=== PATIENT | male | born 1960 | race African-American/Black ===

== ENCOUNTER 2019-04-21 08:15 | Observation (INO) | payer BC ==
[~2019-04-21] VITALS: Ht 172.7 cm; Wt 77.3 kg
[2019-04-21] MEDS ORDERED: NITROGLYCERIN 2% 1 GM OINT PKT TD STA (08:53)
[2019-04-21] MEDS ORDERED: NITROGLYCERIN (SL) 0.4 MG TAB SL PRN ×2 (09:00→11:30)
[2019-04-21] MEDS ORDERED: ACETAMINOPHEN 325 MG TAB PO PRN ×2 (10:00→11:30)
[2019-04-21] MEDS ORDERED: ONDANSETRON 4 MG INJ IV PRN (10:00)
[2019-04-21] MEDS ORDERED: METF500T24 PO (10:26)
[2019-04-21] MEDS ORDERED: BENA1TAB14 PO (10:27)
[2019-04-21] MEDS ORDERED: ATOR20TA38 PO (10:28)
--- NOTE | 2019-04-21 11:28 | HP ---
Date/Time of Note Date/Time of Note DATE: 04/21/19 TIME: 11:28 Assessment/Plan VTE Prophylaxis Pharmacological prophylaxis: LMWH Assessment/Plan Hospital Course 58-year-old -Luxembour[place] male with comorbidities including hypertension, dyslipidemia, and diabetes mellitus type 2 who is presenting with chest pain and will be admitted to inpatient setting for further treatment and evaluation. 1. Chest pain. -Etiology unclear. -Differentials include musculoskeletal chest pain versus ACS versus others. Less likely PE since the patient is saturating well. -Obtain serial troponins. -Obtain 2D echocardiogram to evaluate left ventricular ejection fraction. -Start aspirin. -Obtain cardiology consult. 2. Essential hypertension. -The patient will be resumed on antihypertensives. 3. Diabetes mellitus type 2. -Will hold metformin in anticipation for any IV dye use. -Will start the patient on sliding scale insulin along with pre-meal insulin and basal insulin. -Obtain hemoglobin A1c to evaluate the blood glucose control over the past few months. 4. Dyslipidemia. -Will start the patient on statins. -Obtain a fasting lipid panel. Plan: The patient will be admitted to inpatient telemetry floor. The patient will be started on a carbohydrate control, low-cholesterol diet. The patient will be started on DVT prophylaxis . The patient will remain a full code. Activities will be as tolerated. The rest of the patient's management will be based on the clinical course, i nputs from consultants, and the results of diagnostic studies. Based on the patient's clinical presentation, he most probably requires at least 1 midnight's stay for further management and evaluation of his clinical presentation. The patient was seen in collaboration with Dr. Chacko. Result Diagram: 04/21/19 0904/21/19 0901 Results 24hrs Laboratory Tests Test 04/21/19 09:01 04/21/19 09:02 Sodium Level 138 Potassium Level 4.2 Chloride Level 101 Carbon Dioxide Level 30 Anion Gap 7 Blood Urea Nitrogen 20 Creatinine 1.01 Est Glomerular Filtrat Rate mL/min > 60 Glucose Level 183 Calcium Level 10.1 Troponin I < 0.012 White Blood Count 4.5 L Red Blood Count 5.02 Hemoglobin 14.6 Hematocrit 42.7 Mean Corpuscular Volume 85.1 Mean Corpuscular Hemoglobin 29.1 Mean Corpuscular Hemoglobin Concent 34.2 Red Cell Distribution Width 12.8 Platelet Count 239 Mean Platelet Volume 10.2 Immature Granulocytes % 0.400 Neutrophils % 47.3 Lymphocytes % 40.0 Monocytes % 8.3 Eosinophils % 3.6 Basophils % 0.4 Nucleated Red Blood Cells % 0.0 Immature Granulocytes # 0.020 Neutrophils # 2.1 Lymphocytes # 1.8 Monocytes # 0.4 Eosinophils # 0.2 Basophils # 0.0 Nucleated Red Blood Cells # 0.0 HPI/ROS Admit Date/Time Admit Date/Time Hx of Present Illness Reason for admission: Chest pain. Consultants 1. Bronson Arana MD, Cardiology. This is a 58-year-old male with comorbidities including hypertension, dyslipidemia, and diabetes mellitus type 2. The patient came to the emergency room with chief complaint of chest pain that started around 6:30 AM on 04/21/2019. The patient verbalized the chest pain as substernal. He also had difficulty with deep inspiration at the same time. The patient denied any radiation of the pain. The patient complained of some nausea. He denies any vomiting or diaphoresis. Denied any fevers or chills. The patient verbalized that he has been under psychological stress from his job recently. He was brought to the emergency room. His chest pain resolved after giving nitroglyce rin. 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 In the emergency room, the patient's 12-lead EKG was showing normal sinus rhythm. The patient's initial set of troponin was negative. The patient's chest x-ray was negative for any acute cardiopulmonary process. ROS Constitutional: nausea Eyes: no complaints ENT: no complaints Respiratory: pleuritic pain Cardiovascular: chest pain Gastrointestinal: nausea Genitourinary: no complaints Musculoskeletal: no complaints Skin: no complaints Neurologic: no complaints Endocrine: no complaints Lymphatic: no complaints Psychological: no complaints Immunologic: no complaints PMH/Family/Social Past Medical History 1. Hypertension. 2. Diabetes mellitus type 2 3. Dyslipidemia. Medications Current Medications Nitroglycerin (Nitroglycerin (Sl Tab) 0.4 Mg) 1 tab Q5M UP TO 3 DOSES PRN SL .CHEST PAIN; Start 04/21/19 at 09:00 Ondansetron HCl (Zofran Inj) 4 mg ER BRIDGE PRN IV NAUSEA/VOMITING; Start 04/21/19 at 10:00; Stop 04/22/19 at 09:59 Acetaminophen (Tylenol Tab) 650 mg ER BRIDGE PRN PO .MILD PAIN 1-3 OR TEMP; Start 04/21/19 at 10:00; Stop 04/22/19 at 09:59 Coded Allergies: No Known Allergy (Unverified , 04/21/19) Past Surgical History Past Surgical Hx: no surgical history Family History Significant Family History: heart disease Social History The patient lives at home. Alcohol Use: occasionally Smoking Status: Never smoker Drug Use: none Exam/Review of Systems Vital Signs Vitals Vital Signs Date Temp Pulse Resp B/P (MAP) Pulse Ox O2 O2 Flow FiO2 Time Delivery Rate 04/21/19 98.1 85 18 125/88 99 08:19 (100) Exam Exam General: Adequately build 58 year-old male lying in bed in no apparent distress. HEENT: Normocephalic, atraumatic. Eyes: Anicteric sclerae, conjunctivae clear. ENT: Nasal septum midline, oral mucosa moist. Neck supple, no JVD noticed. Respiratory: Bilaterally clear breath sounds. No use of accessory muscles of respiration. No adventitious breath sounds. Cardiovascular: S1, S2 heard. Regular rate and rhythm. Abdomen: Soft, nontender, and nondistended. Bowel sounds positive in all 4 quadrants. Genitourinary: Deferred. Extremities: No cyanosis, no clubbing, no edema. Peripheral pulses palpable. Neurologic: Cranial nerves II through XII grossly intact. The patient is awake, alert, and oriented. Skin: Normal skin turgor. No skin rashes. Additional Comments CXR IMPRESSION: No evidence of active cardiopulmonary disease. MARCELINO VÁSQUEZ NP April 21, 2019 11:28
[2019-04-21] MEDS ORDERED: NACL 0.9% 3 ML SYG IV SCH (11:30)
[2019-04-21] MEDS ORDERED: HYDROCODONE/APAP (5/325) TAB PO PRN (11:30)
--- NOTE | 2019-04-21 11:38 | ERD ---
ER Documentation Chief Complaint Chief Complaint sob, chest disconfort today HPI Patient is a 58-year-old male with hypertension and diabetes who presents with shortness of breath and chest pain. He said that he woke up this morning with shortness of breath and went to work. However the shortness of breath worsened and then he developed chest tightness across his chest. It still present but it is better than when it first started. He took a full dose 325 mg aspirin today because he was concerned about a possible heart attack. He said that his last stress test was at the end of last year but he has never had a cardiac cat heterization. Upon review of old medical records this is the patient's first visit to the emergency department. ROS All systems reviewed and are negative except as per history of present illness. Medications Home Meds Reported Medications Atorvastatin Calcium* (Atorvastatin Calcium*) 20 Mg Tablet, 20 MG PO QHS, #30 TAB 04/21/19 Benazepril-Hydrochlorothiazide (Benazepril-Hydrochlorothiazide) 20-25 Mg Tablet, 1 TAB PO DAILY, #30 TAB 04/21/19 Metformin Hcl* (Metformin Hcl*) 500 Mg Tablet, 500 MG PO WITH BREAKFAST DINNE, #60 TAB 04/21/19 Allergies Allergies: Coded Allergies: No Known Allergy (Unverified , 04/21/19) FmHx Family History: coronary disease Physical Exam Vitals Vital Signs Date Temp Pulse Resp B/P (MAP) Pulse Ox O2 O2 Flow FiO2 Time Delivery Rate 04/21/19 98.1 85 18 125/88 99 08:19 (100) Physical Exam Const: No acute distress Head: Atraumatic Eyes: Normal Conjunctiva ENT: Normal External Ears, Nose and Mouth. Neck: Full range of motion. No meningismus. Resp: Clear to auscultation bilaterally Cardio: Regular rate and rhythm, no murmurs Abd: Soft, non tender, non distended. Normal bowel sounds Skin: No petechiae or rashes Back: No midline or flank tenderness Ext: No cyanosis, or edema Neur: Awake and alert Psych: Normal Mood and Affect Result Diagram: 04/21/19 0902 04/21/19 0901 Results 24 hrs Laboratory Tests Test 04/21/19 09:01 04/21/19 09:02 Sodium Level 138 mmol/L Potassium Level 4.2 mmol/L Chloride Level 101 mmol/L Carbon Dioxide Level 30 mmol/L Anion Gap 7 Blood Urea Nitrogen 20 mg/dl Creatinine 1.01 mg/dl Est Glomerular Filtrat Rate mL/min > 60 mL/min Glucose Level 183 mg/dl Calcium Level 10.1 mg/dl Troponin I < 0.012 ng/ml White Blood Count 4.5 10^3/ul Red Blood Count 5.02 10^6/ul Hemoglobin 14.6 g/dl Hematocrit 42.7 % Mean Corpuscular Volume 85.1 fl Mean Corpuscular Hemoglobin 29.1 pg Mean Corpuscular Hemoglobin Concent 34.2 g/dl Red Cell Distribution Width 12.8 % Platelet Count 239 10^3/UL Mean Platelet Volume 10.2 fl Immature Granulocytes % 0.400 % Neutrophils % 47.3 % Lymphocytes % 40.0 % Monocytes % 8.3 % Eosinophils % 3.6 % Basophils % 0.4 % Nucleated Red Blood Cells % 0.0 /100WBC Immature Granulocytes # 0.020 10^3/ul Neutrophils # 2.1 10^3/ul Lymphocytes # 1.8 10^3/ul Monocytes # 0.4 10^3/ul Eosinophils # 0.2 10^3/ul Basophils # 0.0 10^3/ul Nucleated Red Blood Cells # 0.0 10^3/ul Current Medications Medications Dose Sig/Luisito Start Time Status Last (Trade) Ordered Route PRN Stop Time Admin Dose Reason Admin 1 inch ONCE STAT 04/21/19 DC 04/21/19 Nitroglycerin TD 08:53 09:29 04/21/19 08:54 (Nitroglyceri n 2% Oint) 1 tab Q5M UP TO 3 04/21/19 Nitroglycerin DOSES PRN 09:00 SL .CHEST (Nitroglyceri PAIN n (Sl Tab) 0.4 Mg) Ondansetron 4 mg ER BRIDGE 04/21/19 HCl (Zofran PRN IV 10:00 Inj) NAUSEA/VOMITI 04/22/19 09:59 NG 650 mg ER BRIDGE 04/21/19 Acetaminophen PRN PO 10:00 (Tylenol .MILD PAIN 04/22/19 09:59 Tab) 1-3 OR TEMP IV Flush 3 ml PER 04/21/19 (NS 3 ml) PROTOCOL IV 11:30 Aspirin 81 mg DAILY PO 04/22/19 (Aspirin) 09:00 1 tab Q5M PRN 04/21/19 Nitroglycerin SL .CHEST 11:30 PAIN (Nitroglyceri n (Sl Tab) 0.4 Mg) 650 mg Q6H PRN 04/21/19 Acetaminophen PO .PAIN 1-3 11:30 (Tylenol OR TEMP Tab) 1 tab Q6H PRN 04/21/19 Acetaminophen PO .PAIN 4-6 11:30 / Hydrocodone Bitart ([place] (5/325)) Enoxaparin 40 mg DAILY SC 04/22/19 Sodium 09:00 (Lovenox) Procedures/MDM EKG 1 read by me: Rate/Rhythm: Regular rate and rhythm at a normal rate Intervals: Normal Impression: No evidence of ischemia or arrhythmia EKG 2 read by me: Rate/Rhythm: Regular rate and rhythm at a normal rate Intervals: Normal Impression: No evidence of ischemia or arrhythmia Chest x-ray read by radiology. Patient is a 58-year-old male with hypertension and diabetes and family history of cardiac disease who presents with chest pain and shortness of breath. I am concerned for possible acute coronary syndrome. I doubt pneumonia, pneumothorax, pulmonary embolism, or aortic dissection. The patient already took full dose aspirin today. He will be given nitroglycerin in the emergency department. He will be admitted to a telemetry observation bed under the care of the panel team. Departure Diagnosis: Primary Impression: Chest pain Chest pain type: unspecified Qualified Codes: R07.9 - Chest pain, unspecified Additional Impression: Shortness of breath Condition: YASH Herring MD April 21, 2019 11:38
[2019-04-21] MEDS ORDERED: DEXTROSE 50% 50 ML SYRINGE IV PRN ×2 (14:30)
[2019-04-21] MEDS ORDERED: GLUCAGON 1 MG INJ IM PRN (14:30)
[2019-04-21] MEDS ORDERED: GLUCOSE GEL 15 GRAM TUBE PO PRN ×2 (14:30)
[2019-04-21] MEDS ORDERED: GLUCOSE GEL 15 GRAM TUBE BUCCAL PRN (14:30)
[2019-04-21 15:00] VITALS: BP 116/76; PULSE 86; RESP 16
[2019-04-21 15:31] VITALS: Ht 172.7 cm; Wt 77.3 kg
[2019-04-21 16:01] VITALS: PULSE 90
[2019-04-21] MEDS: INSULIN ASPART [NOVOLOG] 3 ML PEN SC SCH ×3 (17:40→21:00)
[2019-04-21 20:00] VITALS: BP 114/69; PULSE 84; PULSE 90; RESP 19
[2019-04-21] MEDS ORDERED: INSULIN GLARGINE [LANTus] (100 UNITS/ML) SYG SC SCH (20:00)
[2019-04-21] MEDS: METOPROLOL 25 MG TAB PO SCH (20:24)
[2019-04-21] MEDS ORDERED: ATORVASTATIN 20 MG TAB PO SCH (21:00)
[2019-04-22] VITALS: BP_SYST 100; BP_SYST 145; BP_DIAS 63; BP_DIAS 74; PULSE 71; PULSE 76; RESP 18; RESP 19
[2019-04-22 04:00] VITALS: BP 104/67; PULSE 64; PULSE 74; RESP 18
[2019-04-22] MEDS: INSULIN ASPART [NOVOLOG] 3 ML PEN SC SCH ×5 (07:37→12:10)
[2019-04-22 07:42] VITALS: BP 117/74; PULSE 79; RESP 20
[2019-04-22 08:00] VITALS: PULSE 84; PULSE 95
--- NOTE | 2019-04-22 08:16 | CONS ---
Assessment/Plan Assessment/Plan Hospital Course (Demo Recall) 1. Chest pain/shortness of breath rule acute coronary syndrome 2. Hypertension 3. Diabetes 4. Dyslipidemia 5. History of coronary artery disease in the family cont with ASA betablocker for now R/O NV with serial cardiac enzymes echo cont other home cardiac / BP meds statin LEXISCAN in am if normal trop Thank you BRENDA TEJADA Consultation Date/Type/Reason Admit Date/Time Date of Consultation: April 21, 2019 Type of Consult Cardiology Reason for Consultation chest pain Requesting Provider: MARCELINO VÁSQUEZ NP Date/Time of Note DATE: 04/21/19 TIME: 15:08 Hx of Present Illness Interventional cardiology consultation note Chief complaint: sob. chest discomfort Reason for consult: chest pain History of present illness: Thank you for this referral. This is a pleasant 58-year-old -[place] gentleman with history of diabetes hypertension dyslipidemia family history of coronary artery disease who woke up this morning around 6:00 with complaint of shortness of breath mostly and some chest discomfort and pressure anteriorly. The symptom lasted about an hour and completely resolved now. Patient is states that he is normally able to exercise and weight lift with no chest pain or pressure frequently to remain chest pain-free Allergies: No known drug allergies Medications were reviewed as per medical reconciliation sheet Family history: Father with coronary artery disease Social history: Does not smoke Past medical history: Diabetes hypertension dyslipidemia Review of system: Patient denies all others except for above-mentioned Past Medical History Home Meds Reported Medications Atorvastatin Calcium* (Atorvastatin Calcium*) 20 Mg Tablet, 20 MG PO QHS, #30 TAB 04/21/19 Benazepril-Hydrochlorothiazide (Benazepril-Hydrochlorothiazide) 20-25 Mg Tablet, 1 TAB PO DAILY, #30 TAB 04/21/19 Metformin Hcl* (Metformin Hcl*) 500 Mg Tablet, 500 MG PO WITH BREAKFAST DINNE, #60 TAB 04/21/19 Medications Current Medications Ondansetron HCl (Zofran Inj) 4 mg ER BRIDGE PRN IV NAUSEA/VOMITING; Start 04/21/19 at 10:00; Stop 04/22/19 at 09:59 IV Flush (NS 3 ml) 3 ml PER PROTOCOL IV ; Start 04/21/19 at 11:30 Aspirin (Aspirin) 81 mg DAILY PO ; Start 04/22/19 at 09:00 Nitroglycerin (Nitroglycerin (Sl Tab) 0.4 Mg) 1 tab Q5M PRN SL .CHEST PAIN; Start 04/21/19 at 11:30 Acetaminophen (Tylenol Tab) 650 mg Q6H PRN PO .PAIN 1-3 OR TEMP; Start 04/21/19 at 11:30 Acetaminophen/ Hydrocodone Bitart ([place] (5/325)) 1 tab Q6H PRN PO .PAIN 4-6; Start 04/21/19 at 11:30 Enoxaparin Sodium (Lovenox) 40 mg DAILY SC ; Start 04/22/19 at 09:00 Atorvastatin Calcium (Lipitor) 20 mg QHS PO ; Start 04/21/19 at 21:00 Benazepril HCl (Lotensin) 20 mg DAILY PO ; Start 04/22/19 at 09:00 Insulin Glargine (Lantus) 12 units DAILY@2000 SC ; Start 04/21/19 at 20:00 Insulin Aspart (Novolog Insulin Pen) 4 unit WITH MEALS SC ; Start 04/21/19 at 18:00 Insulin Aspart (Novolog Insulin Pen) NOVOLOG *MILD* ALGORITHM WITH MEALS BEDTIME SC ; Start 04/21/19 at 18:00 Miscellaneous Information 1 ea NOTE XX ; Start 04/21/19 at 14:30 Glucose (Glutose) 15 gm Q15M PRN PO DECREASED GLUCOSE; Start 04/21/19 at 14:30 Glucose (Glutose) 22.5 gm Q15M PRN PO DECREASED GLUCOSE; Start 04/21/19 at 14:30 Dextrose (D50w Syringe) 25 ml Q15M PRN IV DECREASED GLUCOSE; Start 04/21/19 at 14:30 Dextrose (D50w Syringe) 50 ml Q15M PRN IV DECREASED GLUCOSE; Start 04/21/19 at 14:30 Glucagon (Glucagen) 1 mg Q15M PRN IM DECREASED GLUCOSE; Start 04/21/19 at 14:30 Glucose (Glutose) 15 gm Q15M PRN BUCCAL DECREASED GLUCOSE; Start 04/21/19 at 14:30 Allergies: Coded Allergies: No Known Allergy (Unverified , 04/21/19) Past Surgical History Past Surgical Hx: no surgical history Social History Alcohol Use: occasionally Smoking Status: Never smoker Drug Use: none Exam/Review of Systems Vital Signs Vitals Vital Signs Date Temp Pulse Resp B/P (MAP) Pulse Ox O2 O2 Flow FiO2 Time Delivery Rate 04/21/19 95 16 119/84 98 Room Air 14:53 (96) 04/21/19 98.1 08:19 Exam Exam General: no acute distress HEENT: NC/AT. pupils are equal. round. NECK: NO JVD. no stridor. CV: RRR. systolic murmur; no gallop or rubs. PULM: no wheezing or rhonchi. GI: SOFT, NT, ND, no rebound or guarding Extremity: trace B/L LE edema. no clubbing. neuro: awake and alert, OX3. Psych: calm and pleasant rectal: deferred EKG was personally within normal sinus rhythm normal ECG Labs Result Diagram: 04/21/1990104/21/19900 Results 24hrs Laboratory Tests Test 04/21/19 08:59 04/21/19 09:01 04/21/19 09:02 Hemoglobin A1c 8.9 H Sodium Level 138 Potassium Level 4.2 Chloride Level 101 Carbon Dioxide Level 30 Anion Gap 7 Blood Urea Nitrogen 20 Creatinine 1.01 Est Glomerular Filtrat Rate mL/min > 60 Glucose Level 183 Calcium Level 10.1 Troponin I < 0.012 White Blood Count 4.5 L Red Blood Count 5.02 Hemoglobin 14.6 Hematocrit 42.7 Mean Corpuscular Volume 85.1 Mean Corpuscular Hemoglobin 29.1 Mean Corpuscular Hemoglobin Concent 34.2 Red Cell Distribution Width 12.8 Platelet Count 239 Mean Platelet Volume 10.2 Immature Granulocytes % 0.400 Neutrophils % 47.3 Lymphocytes % 40.0 Monocytes % 8.3 Eosinophils % 3.6 Basophils % 0.4 Nucleated Red Blood Cells % 0.0 Immature Granulocytes # 0.020 Neutrophils # 2.1 Lymphocytes # 1.8 Monocytes # 0.4 Eosinophils # 0.2 Basophils # 0.0 Nucleated Red Blood Cells # 0.0 Medications Medications Current Medications Ondansetron HCl (Zofran Inj) 4 mg ER BRIDGE PRN IV NAUSEA/VOMITING; Start 04/21/19 at 10:00; Stop 04/22/19 at 09:59 IV Flush (NS 3 ml) 3 ml PER PROTOCOL IV ; Start 04/21/19 at 11:30 Aspirin (Aspirin) 81 mg DAILY PO ; Start 04/22/19 at 09:00 Nitroglycerin (Nitroglycerin (Sl Tab) 0.4 Mg) 1 tab Q5M PRN SL .CHEST PAIN; Start 04/21/19 at 11:30 Acetaminophen (Tylenol Tab) 650 mg Q6H PRN PO .PAIN 1-3 OR TEMP; Start 04/21/19 at 11:30 Acetaminophen/ Hydrocodone Bitart ([place] (5/325)) 1 tab Q6H PRN PO .PAIN 4-6; Start 04/21/19 at 11:30 Enoxaparin Sodium (Lovenox) 40 mg DAILY SC ; Start 04/22/19 at 09:00 Atorvastatin Calcium (Lipitor) 20 mg QHS PO ; Start 04/21/19 at 21:00 Benazepril HCl (Lotensin) 20 mg DAILY PO ; Start 04/22/19 at 09:00 Insulin Glargine (Lantus) 12 units DAILY@2000 SC ; Start 04/21/19 at 20:00 Insulin Aspart (Novolog Insulin Pen) 4 unit WITH MEALS SC ; Start 04/21/19 at 18:00 Insulin Aspart (Novolog Insulin Pen) NOVOLOG *MILD* ALGORITHM WITH MEALS BEDTIME SC ; Start 04/21/19 at 18:00 Miscellaneous Information 1 ea NOTE XX ; Start 04/21/19 at 14:30 Glucose (Glutose) 15 gm Q15M PRN PO DECREASED GLUCOSE; Start 04/21/19 at 14:30 Glucose (Glutose) 22.5 gm Q15M PRN PO DECREASED GLUCOSE; Start 04/21/19 at 14:30 Dextrose (D50w Syringe) 25 ml Q15M PRN IV DECREASED GLUCOSE; Start 04/21/19 at 14:30 Dextrose (D50w Syringe) 50 ml Q15M PRN IV DECREASED GLUCOSE; Start 04/21/19 at 14:30 Glucagon (Glucagen) 1 mg Q15M PRN IM DECREASED GLUCOSE; Start 04/21/19 at 14:30 Glucose (Glutose) 15 gm Q15M PRN BUCCAL DECREASED GLUCOSE; Start 04/21/19 at 14:30 BRENDA TEJADA MD April 21, 2019 15:18
--- NOTE | 2019-04-22 08:17 | CONS ---
Consult Date/Type/Reason Admit Date/Time April 21, 2019 at 09:53 Initial Consult Date 04/21/19 Requesting Provider: MARCELINO VÁSQUEZ NP Date/Time of Note DATE: 04/22/19 TIME: 08:16 Subjective CV follow up note S: D/W staff and tele was reviewed pt has remained in NSR NO CHESTPAIN or pressure now less sob O; General: no acute distress HEENT: NC/AT. pupils are equal. round. NECK: NO JVD. no stridor. CV: RRR. systolic murmur; no gallop or rubs. PULM: no wheezing or rhonchi. GI: SOFT, NT, ND, no rebound or guarding Extremity: trace B/L LE edema. no clubbing. neuro: awake and alert, OX3. Psych: calm and pleasant rectal: deferred EKG was personally within normal sinus rhythm normal ECG Objective Vitals Vital Signs Date Temp Pulse Resp B/P (MAP) Pulse Ox O2 O2 Flow FiO2 Time Delivery Rate 04/22/19 98.2 79 20 117/74 96 Room Air 07:42 (88) Intake and Output 04/21/19 04/21/19 04/22/19 1515:00 23:00 07:00 IntakeIntake Total 200 ml 500 ml BalanceBalance 200 ml 500 ml Results/Medications Result Diagram: 04/22/19 0631 04/22/19 0631 Results 24 hrs Laboratory Tests Test 04/21/19 08:59 04/21/19 09:01 04/21/19 09:02 04/21/19 15:49 Hemoglobin A1c 8.9 H Thyroid Stimulating 1.090 Hormone (TSH) Free Thyroxine 1.03 Sodium Level 138 Potassium Level 4.2 Chloride Level 101 Carbon Dioxide Level 30 Anion Gap 7 Blood Urea Nitrogen 20 Creatinine 1.01 Est Glomerular > 60 Filtrat Rate mL/min Glucose Level 183 Calcium Level 10.1 Troponin I < 0.012 < 0.012 White Blood Count 4.5 L Red Blood Count 5.02 Hemoglobin 14.6 Hematocrit 42.7 Mean Corpuscular 85.1 Volume Mean Corpuscular 29.1 Hemoglobin Mean Corpuscular 34.2 Hemoglobin Concent Red Cell 12.8 Distribution Width Platelet Count 239 Mean Platelet Volume 10.2 Immature 0.400 Granulocytes % Neutrophils % 47.3 Lymphocytes % 40.0 Monocytes % 8.3 Eosinophils % 3.6 Basophils % 0.4 Nucleated Red Blood 0.0 Cells % Immature 0.020 Granulocytes # Neutrophils # 2.1 Lymphocytes # 1.8 Monocytes # 0.4 Eosinophils # 0.2 Basophils # 0.0 Nucleated Red Blood 0.0 Cells # Creatine Kinase 144 Creatine Kinase 0.5 Index Creatinine Kinase MB 0.66 (Mass) Test 04/21/19 17:29 04/21/19 21:08 04/21/19 21:39 04/22/19 00:01 Bedside Glucose 170 136 Creatine Kinase 144 Creatine Kinase 0.4 Index Creatinine Kinase MB 0.61 (Mass) Troponin I < 0.012 Urine Opiates Screen NEGATIVE Urine Barbiturates NEGATIVE Urine Amphetamines NEGATIVE Screen Urine NEGATIVE Benzodiazepines Screen Urine Cocaine Screen NEGATIVE Urine Cannabinoids POSITIVE Test 04/22/19 06:31 White Blood Count 4.5 L Red Blood Count 5.14 Hemoglobin 15.0 Hematocrit 43.4 Mean Corpuscular 84.4 Volume Mean Corpuscular 29.2 Hemoglobin Mean Corpuscular 34.6 Hemoglobin Concent Red Cell 12.6 Distribution Width Platelet Count 252 Mean Platelet Volume 10.7 H Immature 0.000 L Granulocytes % Neutrophils % 36.5 L Lymphocytes % 45.7 Monocytes % 8.9 Eosinophils % 8.2 H Basophils % 0.7 Nucleated Red Blood 0.0 Cells % Immature 0.000 Granulocytes # Neutrophils # 1.6 Lymphocytes # 2.1 Monocytes # 0.4 Eosinophils # 0.4 Basophils # 0.0 Nucleated Red Blood 0.0 Cells # Sodium Level 137 Potassium Level 4.1 Chloride Level 101 Carbon Dioxide Level 28 Anion Gap 8 Blood Urea Nitrogen 20 Creatinine 0.99 Est Glomerular > 60 Filtrat Rate mL/min Glucose Level 148 Calcium Level 9.6 Phosphorus Level 3.8 Magnesium Level 1.9 Total Bilirubin 0.7 Direct Bilirubin 0.00 Indirect Bilirubin 0.7 Aspartate Amino 28 Transf (AST/SGOT) Alanine 31 Aminotransferase (AL T/SGPT) Alkaline Phosphatase 53 Creatine Kinase 120 Creatine Kinase 0.5 Index Creatinine Kinase MB 0.63 (Mass) Troponin I < 0.012 Total Protein 6.7 Albumin 4.3 Globulin 2.40 Albumin/Globulin 1.79 Ratio Triglycerides Level 116 Cholesterol Level 127 LDL Cholesterol, 74 Calculated HDL Cholesterol 30 Cholesterol/HDL 4.2 Ratio Home Meds Reported Medications Atorvastatin Calcium* (Atorvastatin Calcium*) 20 Mg Tablet, 20 MG PO QHS, #30 TAB 04/21/19 Benazepril-Hydrochlorothiazide (Benazepril-Hydrochlorothiazide) 20-25 Mg Tablet, 1 TAB PO DAILY, #30 TAB 04/21/19 Metformin Hcl* (Metformin Hcl*) 500 Mg Tablet, 500 MG PO WITH BREAKFAST DINNE, #60 TAB 04/21/19 Medications Current Medications Ondansetron HCl (Zofran Inj) 4 mg ER BRIDGE PRN IV NAUSEA/VOMITING; Start 04/21/19 at 10:00; Stop 04/22/19 at 09:59 IV Flush (NS 3 ml) 3 ml PER PROTOCOL IV ; Start 04/21/19 at 11:30 Aspirin (Aspirin) 81 mg DAILY PO ; Start 04/22/19 at 09:00 Nitroglycerin (Nitroglycerin (Sl Tab) 0.4 Mg) 1 tab Q5M PRN SL .CHEST PAIN; Start 04/21/19 at 11:30 Acetaminophen (Tylenol Tab) 650 mg Q6H PRN PO .PAIN 1-3 OR TEMP; Start 04/21/19 at 11:30 Acetaminophen/ Hydrocodone Bitart (Arrey (5/325)) 1 tab Q6H PRN PO .PAIN 4-6; Start 04/21/19 at 11:30 Enoxaparin Sodium (Lovenox) 40 mg DAILY SC ; Start 04/22/19 at 09:00 Atorvastatin Calcium (Lipitor) 20 mg QHS PO Last administered on 04/21/19at 20:23; Admin Dose 20 MG; Start 04/21/19 at 21:00 Benazepril HCl (Lotensin) 20 mg DAILY PO ; Start 04/22/19 at 09:00 Insulin Glargine (Lantus) 12 units DAILY@2000 SC Last administered on 04/21/19at 21:54; Admin Dose 12 UNITS; Start 04/21/19 at 20:00 Insulin Aspart (Novolog Insulin Pen) 4 unit WITH MEALS SC Last administered on 04/21/19at 17:40; Admin Dose 4 UNIT; Start 04/21/19 at 17:55 Insulin Aspart (Novolog Insulin Pen) NOVOLOG *MILD* ALGORITHM WITH MEALS BEDTIME SC Last administered on 04/21/19at 17:40; Admin Dose 1 UNIT; Start 04/21 at 17:55 Miscellaneous Information 1 ea NOTE XX ; Start 04/21/19 at 14:30 Glucose (Glutose) 15 gm Q15M PRN PO DECREASED GLUCOSE; Start 04/21/19 at 14:30 Glucose (Glutose) 22.5 gm Q15M PRN PO DECREASED GLUCOSE; Start 04/21/19 at 14:30 Dextrose (D50w Syringe) 25 ml Q15M PRN IV DECREASED GLUCOSE; Start 04/21/19 at 14:30 Dextrose (D50w Syringe) 50 ml Q15M PRN IV DECREASED GLUCOSE; Start 04/21/19 at 14:30 Glucagon (Glucagen) 1 mg Q15M PRN IM DECREASED GLUCOSE; Start 04/21/19 at 14:30 Glucose (Glutose) 15 gm Q15M PRN BUCCAL DECREASED GLUCOSE; Start 04/21/19 at 14:30 Metoprolol Tartrate (Lopressor) 12.5 mg BID PO Last administered on 04/21/19at 20:24; Admin Dose 12.5 MG; Start 04/21/19 at 21:00 Assessment/Plan Hospital Course (Demo Recall) 1. Chest pain/shortness of breath rule acute coronary syndrome 2. Hypertension 3. Diabetes 4. Dyslipidemia 5. History of coronary artery disease in the family cont with ASA [place] was ruled out echo cont other home cardiac / BP meds statin LEXISCAN today. dc planning if normal. but [facility] cristopher PCI if abnormal Thank you BRENDA CHILDS MD April 22, 2019 08:17
[2019-04-22] MEDS ORDERED: REGADENOSON 0.4 MG/5 ML SYG ONE (08:25)
--- NOTE | 2019-04-22 08:44 | RADRPT ---
Echocardiogram Report Patient Name: GABE RPATHERPatient ID: [id number] : 1960 (58y 4m)Study Date: 04/21/2019 4:18:27 PM Gender: Veecession #: [id number] Tech: Saw Dyson [facility] Location: [id number] Ref.Physician: BRENDA ARANA Height(Cm): BSA: Weight(Kg): Quality: AdequateOrder Physician: BRENDA ARANA Account #: Procedures: Echocardiographic Report: Transthoracic echocardiogram with complete 2D, M-Mode, and doppler examination. Indications: Acute Coronary Artery Disease. Measurements: 2D/M Mode Doppler Measurement Value Normal Range Measurement Value Normal Range LVIDd 2D 3.7 [ 4.2 - 5.8 ] cm AV Peak Raymond 1.0 [ 100.0 - 170.0 ] cm/sec LVIDs 2D 2.3 [ 2.5 - 4.0 ] cm AV Peak PG 4.0 [ 2.0 - 9.0 ] mmHg LVPWd 2D 1.0 [ 0.6 - 1.0 ] cm LVOT Peak Raymond 1.0 [ 70.0 - 110.0 ] cm/sec IVSd 2D 1.0 [ 0.6 - 1.0 ] cm LVOT Peak PG 4.0 [ 2.0 - 6.0 ] mmHg AoR Diam 2D 2.4 [ 2.6 - 3.4 ] cm MV E Peak Raymond 0.6 [ 60.0 - 130.0 ] cm/sec EDV 2D 57.4 [ 62.0 - 150.0 ] ml MV A Peak Raymond 0.8 [ 100.0 - 120.0 ] cm/sec ESV 2D 17.1 [ 21.0 - 61.0 ] ml MV E/A 0.8 [ 0.8 - 1.5 ] ratio EF 2D 70.2 [ 52.0 - 72.0 ] percent MV Decel Time 243 [ 104 - 258 ] msec LA Dimen 2D 2.8 [ 3.0 - 4.0 ] cm Lat E` Raymond 0.1 [ 10.0 - 15.0 ] cm/sec Lateral E/E` 11.6 [ 1.0 - 2.0 ] ratio MV E/A 0.8 [ 0.8 - 1.5 ] ratio RA Pressure 10.0 mmHg Findings: Left Ventricle: Normal left ventricular systolic function. Normal left ventricular cavity size. Normal left ventricular wall thickness. Ejection fraction is visually estimated at 60 %. Tissue Doppler/Mitral Doppler indices are consistent with impaired relaxation (Stage I diastolic dysfunction). Right Ventricle: Normal right ventricular size. Normal right ventricular systolic function. Left Atrium: The left atrium is normal in size. Right Atrium: The right atrium is normal in size. Mitral Valve: Normal appearance and function of the mitral valve with trace physiologic regurgitation. Aortic Valve: No hemodynamically significant aortic stenosis by doppler. Aortic cusps appear mildly calcified. Tricuspid Valve: Normal appearance of the tricuspid valve. Unable to obtain RVSP due to minimal presence of tricuspid regurgitation. Pericardium: Normal pericardium with no significant pericardial effusion. Aorta: Normal aortic root. IVC: Normal size and normal respiratory collapse consistent with normal right atrial pressure. Conclusions: Normal left ventricular systolic function. Normal left ventricular cavity size. Normal left ventricular wall thickness. Ejection fraction is visually estimated at 60 %. Tissue Doppler/Mitral Doppler indices are consistent with impaired relaxation (Stage I diastolic dysfunction). Normal appearance and function of the mitral valve with trace physiologic regurgitation. No hemodynamically significant aortic stenosis by doppler. Aortic cusps appear mildly calcified. Normal appearance of the tricuspid valve. Unable to obtain RVSP due to minimal presence of tricuspid regurgitation. Electronically Signed By: Brenda Arana 2019-04-22 08:43:57 PDT
[2019-04-22] MEDS ORDERED: ENOXAPARIN 40 MG/0.4 ML SYG SC SCH (09:00)
[2019-04-22] MEDS ORDERED: BENAZEPRIL 20 MG TAB PO SCH (09:00)
[2019-04-22] MEDS ORDERED: ASPIRIN 81 MG TAB PO SCH (09:00)
[2019-04-22] MEDS: METOPROLOL 25 MG TAB PO SCH (10:06)
[2019-04-22 11:27] VITALS: BP 121/78; PULSE 87; RESP 20
--- NOTE | 2019-04-22 11:51 | PDOCDIS ---
Discharge Instructions CONDITION [id number] Patient Condition: [id number] Stable HOME CARE INSTRUCTIONS: [id number] Special Diet: [id number] Carbohydrate controlled. FOLLOW UP/APPOINTMENTS Follow-up Plan 1. Resume home medications 2. Follow a low-cholesterol, low carbohydrate diet. 3. Resume activities as tolerated. 4. Follow-up with your gas and oil checker as scheduled. 5. Please go to the nearest emergency room if you have any chest pain, significant shortness of breath, or any other unusual signs/symptoms. MARCELINO VÁSQUEZ NP April 22, 2019 11:51
[2019-04-22 12:00] VITALS: PULSE 81
--- NOTE | 2019-04-22 12:01 | DS ---
Date/Time of Note Date/Time of Note DATE: 04/22/19 TIME: 11:55 Discharge Summary Admission/Discharge Info Admit Date/Time April 21, 2019 at 09:53 Discharge Date/Time Discharge Diagnosis 1. Atypical chest pain. 2. Hypertension. 3. Dyslipidemia. 4. Diabetes mellitus type 2. Patient Condition: Stable Consults 1. Bronson Arana MD, Cardiology. Procedures 2D Echocardiogram Conclusions: Normal left ventricular systolic function. Normal left ventricular cavity size. Normal left ventricular wall thickness. Ejection fraction is visually estimated at 60 %. Tissue Doppler/Mitral Doppler indices are consistent with impaired relaxation (Stage I diastolic dysfunction). Normal appearance and function of the mitral valve with trace physiologic regurgitation. No hemodynamically significant aortic stenosis by Doppler. Aortic cusps appear mildly calcified. Normal appearance of the tricuspid valve. Unable to obtain RVSP due to minimal presence of tricuspid regurgitation. Lexiscan Myocardial Perfusion Study IMPRESSION: 1. No evidence of stress-induced ischemia. 2. No wall motion abnormalities. 3. The left ventricle ejection fraction at stress is 55%. Hx of Present Illness Reason for admission: Chest pain. Consultants 1. Bronson Arana MD, Cardiology. This is a 58-year-old male with comorbidities including hypertension, dyslipidemia, and diabetes mellitus type 2. The patient came to the emergency room with chief complaint of chest pain that started around 6:30 AM on 04/21/2019. The patient verbalized the chest pain as substernal. He also had difficulty with deep inspiration at the same time. The patient denied any radiation of the pain. The patient complained of some nausea. He denies any vomiting or diaphoresis. Denied any fevers or chills. The patient verbalized that he has been under psychological stress from his job recently. He was brought to the emergency room. His chest pain resolved after giving nitroglycerin. The patient reportedly follows up with a agribusiness professor as outpatient and he had a stress test approximately 1 year ago that was apparently negative. In the emergency room, the patient's 12-lead EKG was showing normal sinus rhythm. The patient's initial set of troponin was negative. The patient's chest x-ray was negative for any acute cardiopulmonary process. Hospital Course The patient was admitted to inpatient setting. A cardiology consult was o btained. Serial troponins were obtained. A 2D echocardiogram was obtained. The patient's serial troponins remained negative. The patient's 2D echocardiogram was showing preserved left ventricular ejection fraction. The patient also underwent a nuclear medicine cardiac stress test that was negative for any reversible perfusion defects. The patient was ruled out for any underly ing ACS. The patient's chest pain could have been most probably musculoskeletal in origin. The patient's chronic problems include hypertension. The patient was maintained on antihypertensives. He has underlying diabetes mellitus type 2. The patient's hemoglobin A1c was found to be 8.9. The patient was maintained on sliding scale insulin during the hospital course with well-controlled blood sugars. The patient has underlying dyslipidemia. The patient was maintained on statins. The patient's fasting lipid panel was satisfactory. The patient had a stable hospital course. The patient was cleared by cardiology to be discharged home. The patient denied any complaints at the time of discharge. Discharge Instructions 1. Resume home medications 2. Follow a low-cholesterol, low carbohydrate diet. 3. Resume activities as tolerated. 4. Follow-up with your agribusiness professor as scheduled. 5. Please go to the nearest emergency room if you have any chest pain, significant shortness of breath, or any other unusual signs/symptoms. The patient verbalized understanding of his discharge instructions. At this time I would like to thank Dr. Arana for seeing the patient and providing clinical recommendations.Instructions The patient was seen in collaboration with Dr. Chacko. Home Meds Reported Medications Atorvastatin Calcium* (Atorvastatin Calcium*) 20 Mg Tablet, 20 MG PO QHS, #30 TAB 04/21/19 Benazepril-Hydrochlorothiazide (Benazepril-Hydrochlorothiazide) 20-25 Mg Tablet, 1 TAB PO DAILY, #30 TAB 04/21/19 Metformin Hcl* (Metformin Hcl*) 500 Mg Tablet, 500 MG PO WITH BREAKFAST DINNE, #60 TAB 04/21/19 Follow-up Plan 1. Resume home medications 2. Follow a low-cholesterol, low carbohydrate diet. 3. Resume activities as tolerated. 4. Follow-up with your agribusiness professor as scheduled. 5. Please go to the nearest emergency room if you have any chest pain, significant shortness of breath, or any other unusual signs/symptoms. Primary Care Provider Care Physician No Primary Time spent on discharge: > 30 minutes Pending Labs Laboratory Tests Test 04/21/19 15:49 04/21/19 17:29 04/21/19 21:08 04/21/19 21:39 Creatine 144 144 Kinase IU/L (23-200) IU/L (23-200) Creatine Kinase 0.5 0.4 Index Creatinine 0.66 0.61 Kinase MB ng/ml (0.0-2.4) ng/ml (0.0-2.4 (Mass) ) Troponin I < 0.012 < 0.012 ng/ml (0.000-0. ng/ml (0.000-0 120) .120) Bedside 170 136 Glucose mg/dL (70-220) mg/dL (70-220) Test 04/22/19 00:01 04/22/19 06:31 04/22/19 09:32 Urine Opiates NEGATIVE (NEGAT Screen DAMIEN) Urine NEGATIVE (NEGAT Barbiturates DAMIEN) Urine NEGATIVE (NEGAT Amphetamines DAMIEN) Screen Urine NEGATIVE (NEGAT Benzodiazepines DAMIEN) Screen Urine Cocaine NEGATIVE (NEGAT Screen DAMIEN) Urine POSITIVE (NEGAT Cannabinoids DAMIEN) White Blood 4.5 Count 10^3/ul (4.8-1 0.8) Red Blood 5.14 Count 10^6/ul (4.70- 6.10) Hemoglobin 15.0 g/dl (14.0-18. 0) Hematocrit 43.4 % (42.0-52.0) Mean 84.4 Corpuscular fl (82.0-101.0 Volume ) Mean 29.2 Corpuscular pg (29.0-33.0) Hemoglobin Mean 34.6 Corpuscular g/dl (32.0-37. Hemoglobin Conc 0) ent Red Cell 12.6 Distribution % (11.5-14.5) Width Platelet Count 252 10^3/UL (140-4 15) Mean Platelet 10.7 Volume fl (7.4-10.4) Immature 0.000 Granulocytes % % (0.001-0.429 ) Neutrophils % 36.5 % (39.0-77.0) Lymphocytes % 45.7 % (15.0-51.0) Monocytes % 8.9 % (0.0-11.0) Eosinophils % 8.2 % (0.0-7.0) Basophils % 0.7 % (0.0-2.0) Nucleated Red 0.0 Blood Cells % /100WBC (0.0-0 .0) Immature 0.000 Granulocytes # 10^3/ul (0.0-0 .031) Neutrophils # 1.6 10^3/ul (1.6-7 .5) Lymphocytes # 2.1 10^3/ul (0.8-2 .9) Monocytes # 0.4 10^3/ul (0.3-0 .9) Eosinophils # 0.4 10^3/ul (0.0-0 .5) Basophils # 0.0 10^3/ul (0.0-0 .1) Nucleated Red 0.0 Blood Cells # 10^3/ul (0.0-0 .0) Sodium Level 137 mmol/L (135-14 4) Potassium 4.1 Level mmol/L (3.5-5. 1) Chloride Level 101 mmol/L (97-110 ) Carbon Dioxide 28 Level mmol/L (21-31) Anion Gap 8 (5-13) Blood Urea 20 Nitrogen mg/dl (7-20) Creatinine 0.99 mg/dl (0.61-1. 24) Est Glomerular > 60 Filtrat mL/min (>60) Rate mL/min Glucose Level 148 mg/dl (70-220) Calcium Level 9.6 mg/dl (8.4-10. 2) Phosphorus 3.8 Level mg/dl (2.5-4.9 ) Magnesium 1.9 Level mg/dl (1.7-2.5 ) Total 0.7 Bilirubin mg/dl (0.2-1.3 ) Direct 0.00 Bilirubin mg/dl (0.00-0. 20) Indirect 0.7 Bilirubin mg/dl (0-1.1) Aspartate Amino 28 Transf (AST/SGO IU/L (15-46) T) Alanine 31 Aminotransferas IU/L (13-69) e (ALT/SGPT) Alkaline 53 Phosphatase IU/L (42-121) Creatine 120 Kinase IU/L (23-200) Creatine Kinase 0.5 Index Creatinine 0.63 Kinase MB ng/ml (0.0-2.4 (Mass) ) Troponin I < 0.012 ng/ml (0.000-0 .120) Total Protein 6.7 g/dl (6.1-8.1) Albumin 4.3 g/dl (3.3-4.9) Globulin 2.40 g/dl (1.3-3.2) Albumin/Globuli 1.79 n Ratio Triglycerides 116 Level mg/dl (0-149) Cholesterol 127 Level mg/dl (100-200 ) LDL 74 mg/dl Cholesterol, Calculated HDL 30 Cholesterol mg/dl (28-71) Cholesterol/HDL 4.2 RATIO Ratio Bedside 157 Glucose mg/dL (70-220) MARCELINO VÁSQUEZ NP April 22, 2019 12:01
== END 2019-04-22 12:40 | disposition home or self-care (01) ==
LOC: E/R 08:15 → TEL 09:53
PROVIDERS: ADMIT Internal Medicine; ATTEND Internal Medicine
DX: R07.89 Other chest pain (principal); I10 Essential (primary) hypertension; E11.9 Type 2 diabetes mellitus without complications; Z79.84 Long term (current) use of oral hypoglycemic drugs; E78.5 Hyperlipidemia, unspecified; Z82.49 Family history of ischemic heart disease and other diseases of the circulatory system
CPT/HCPCS: 36415; 71045; 78452; 80048; 80053; 80061; 80307; 82550; 82553; 82962; 83036; 83735; 84100; 84439; 84443; 84484; 85025; 93005; 93017; 93306; 99285; A9500; A9505; G0378; J1650; J1815; J2785